=== PATIENT | male | born 1945 | race Caucasian/White ===

== ENCOUNTER 2020-04-05 10:59 | Inpatient (IN) | payer OTHER ==
[~2020-04-05] VITALS: Ht 182.9 cm; Wt 75.8 kg
[2020-04-05 12:14] LABS: Basophils # (auto) 0 10 ^3/uL (0-0.2); Basophils % (auto) 0.1 % (0.0-2.0); Eosinophils # (auto) 0 10 ^3/uL (0-0.8); Eosinophils % (auto) 0.1 % (0.0-7.0); Hematocrit 31.9 % (41.0-53.0); Hemoglobin 10.5 g/dL (13.5-17.5); Lymphocytes # (auto) 0.8 10 ^3/uL (0.4-5.4); Lymphocytes % (auto) 6.6 % (10.0-50.0); Mean Corpuscular Hemoglobin 28.3 pg (28.0-32.0); Mean Corpuscular Hgb Conc. 32.9 g/dL (32.0-36.0); Mean Corpuscular Volume 86.1 fL (80.0-100.0); Monocytes # (auto) 0.6 10 ^3/uL (0-1.3); Monocytes % (auto) 5.3 % (0.0-12.0); Neutrophils # (auto) 10.3 10 ^3/uL (1.6-8.6); Neutrophils % (auto) 87.9 % (37.0-80.0); Platelet Count (auto) 367 10^3/uL (140-450); Red Blood Cells 3.71 10^6/uL (4.5-5.90); White Blood Cell 11.7 10^3/uL (4.4-10.8)
[2020-04-05 12:37] LABS: Calcium 8.9 mg/dL (8.5-10.1); Potassium 4.4 mmol/L (3.5-5.1)
[2020-04-05 12:40] LABS: BUN/Creatinine Ratio 24.5; Bilirubin, Total 1.2 mg/dL (0.2-1.0); Total Protein 7.4 g/dL (6.4-8.2)
[2020-04-05] MEDS ORDERED: cefTRIAXone 1GM/50ML D5W 50 ML IV ONE (12:45)
[2020-04-05] MEDS ORDERED: SODIUM CHLORIDE 0.9% 1,000 ML IVB ONE (13:00)
[2020-04-05 13:58] LABS: INR 1.08 (0.9-1.15); Partial Thromboplastin Time 30.7 sec (23.0-31.2)
[2020-04-05 14:12] LABS: Magnesium 2.3 mg/dL (1.6-2.6)
[2020-04-05] MEDS ORDERED: ASPirin 81 mg TAB PO ONE (15:15)
[2020-04-05] MEDS ORDERED: DEXTROSE (50%) 50ML SYRG IV PRN (16:00)
[2020-04-05] MEDS ORDERED: NITROGLYCERIN 0.4 MG SL TAB SL PRN (16:00)
[2020-04-05] MEDS ORDERED: METOCLOPRAMIDE HCL 5MG/ml INJ 2ml VIAL IV PRN (16:00)
[2020-04-05] MEDS ORDERED: TEMAZEPAM 15 MG CAP PO PRN (16:00)
[2020-04-05] MEDS ORDERED: DOCUSATE SOD 100 MG CAP PO PRN (16:00)
[2020-04-05] MEDS ORDERED: ALUM & MAG HYDROX-SIMETH LIQ(MAALOX) 30 ML PO PRN (16:00)
[2020-04-05] MEDS ORDERED: ACETAMINOPHEN 325 MG TAB PO PRN (16:00)
[2020-04-05] MEDS ORDERED: CLINDAMYCIN 600MG IV 50 ML IV ONE (16:00)
[2020-04-05] MEDS: SODIUM CHLORIDE 0.9% 1,000 ML IV SCH (16:10)
[2020-04-05 16:33] LABS: Cholesterol 137 mg/dL (< 200); Triglycerides 107 mg/dL (< 150)
[2020-04-05 16:35] LABS: HDL Cholesterol 31 mg/dL (40-59); LDL Cholesterol 92 mg/dL (< 100)
[2020-04-05] MEDS: HYDROcodone-ACET 5/325MG TAB PO PRN (19:03)
[2020-04-05] MEDS: ACCU-CHEK COMFORT CURVE STRIP VI SCH ×2 (19:03→23:14)
[2020-04-05] MEDS: InsuLIN REG 1unit/0.01ml Soln (100units/ml) SC SCH ×2 (19:20→23:43)
[2020-04-05] MEDS: CLINDAMYCIN 600MG IV 50 ML IV SCH (22:00)
[2020-04-05] MEDS: ATORVASTATIN 20 MG TAB PO SCH (22:00)
[2020-04-05] MEDS: CARVEDILOL 3.125 MG TAB PO SCH (22:00)
[2020-04-05 22:49] VITALS: BP 112/59
[2020-04-06] MEDS ORDERED: METF-370 PO (00:32)
[2020-04-06] MEDS ORDERED: ASPI-543 PO (00:32)
[2020-04-06] MEDS ORDERED: CINN500C7 PO (00:32)
[2020-04-06] MEDS ORDERED: MULT-930 PO (00:32)
[2020-04-06 02:19] LABS: Urine Bacteria NONE SEEN /hpf (None Seen); Urine Blood TRACE /uL (Negative); Urine Specific Gravity 1.028 (1.001-1.035); Urine WBC <1 /hpf (0 - 3)
[2020-04-06 02:20] LABS: Alcohol, Urine < 3.0 mg/dL (0-10); Amphetamine Screen, Urine NEGATIVE (NEGATIVE); Barbiturate Scree,Urine NEGATIVE (NEGATIVE); Benzodiazephine Screen, Urine NEGATIVE (NEGATIVE); Cannabinoid Screen, Urine NEGATIVE (NEGATIVE); Cocaine Screen, Urine NEGATIVE (NEGATIVE); Opiate Scree,Urine POSITIVE (NEGATIVE); Phencyclidine Screen, Urine NEGATIVE (NEGATIVE)
[2020-04-06 05:00] VITALS: BP 119/49
[2020-04-06 06:21] LABS: Basophils # (auto) 0 10 ^3/uL (0-0.2); Basophils % (auto) 0.3 % (0.0-2.0); Eosinophils # (auto) 0.2 10 ^3/uL (0-0.8); Eosinophils % (auto) 2.1 % (0.0-7.0); Hematocrit 28.7 % (41.0-53.0); Hemoglobin 9.9 g/dL (13.5-17.5); Lymphocytes # (auto) 1.3 10 ^3/uL (0.4-5.4); Lymphocytes % (auto) 12.3 % (10.0-50.0); Mean Corpuscular Hemoglobin 29.3 pg (28.0-32.0); Mean Corpuscular Hgb Conc. 34.3 g/dL (32.0-36.0); Mean Corpuscular Volume 85.5 fL (80.0-100.0); Monocytes # (auto) 0.6 10 ^3/uL (0-1.3); Monocytes % (auto) 5.7 % (0.0-12.0); Neutrophils # (auto) 8.7 10 ^3/uL (1.6-8.6); Neutrophils % (auto) 79.6 % (37.0-80.0); Nucleated Red Blood Cells % 0.1 %; Platelet Count (auto) 340 10^3/uL (140-450); Red Blood Cells 3.36 10^6/uL (4.5-5.90); White Blood Cell 10.9 10^3/uL (4.4-10.8)
[2020-04-06 06:29] LABS: Potassium 3.7 mmol/L (3.5-5.1)
[2020-04-06 06:36] LABS: BUN/Creatinine Ratio 29.5; Calcium 8.1 mg/dL (8.5-10.1)
[2020-04-06] MEDS: ACCU-CHEK COMFORT CURVE STRIP VI SCH ×4 (06:36→23:11)
[2020-04-06] MEDS: InsuLIN REG 1unit/0.01ml Soln (100units/ml) SC SCH ×3 (06:37→17:00)
[2020-04-06] MEDS: CLINDAMYCIN 600MG IV 50 ML IV SCH ×3 (06:45→22:52)
[2020-04-06] MEDS: HYDROcodone-ACET 5/325MG TAB PO PRN ×2 (07:03→18:48)
[2020-04-06 08:00] VITALS: BP 110/62
[2020-04-06] MEDS: SODIUM CHLORIDE 0.9% 1,000 ML IV SCH (08:40)
[2020-04-06] MEDS: FAMOTIDINE 20 MG TAB PO SCH (10:20)
[2020-04-06] MEDS: cefTRIAXone 1GM/50ML D5W 50 ML IV SCH (10:20)
[2020-04-06] MEDS: ASPirin 81 mg TAB PO SCH (10:20)
[2020-04-06] MEDS: CARVEDILOL 3.125 MG TAB PO SCH ×2 (10:21→22:53)
[2020-04-06 12:53] VITALS: BP 110/61
[2020-04-06 17:17] VITALS: BP 126/83
[2020-04-06 22:00] VITALS: BP 112/61
[2020-04-06] MEDS: ATORVASTATIN 20 MG TAB PO SCH (22:53)
[2020-04-06] MEDS: INSULIN LANTUS (GLARGINE) 1 /0.01ml (100units/ml) SC SCH (22:54)
[2020-04-07] MEDS: HYDROcodone-ACET 5/325MG TAB PO PRN ×3 (01:24→20:29)
[2020-04-07 05:00] VITALS: BP 115/65
[2020-04-07] MEDS: CLINDAMYCIN 600MG IV 50 ML IV SCH ×3 (05:44→21:24)
[2020-04-07] MEDS: ACCU-CHEK COMFORT CURVE STRIP VI SCH ×3 (06:00→16:35)
[2020-04-07] MEDS: ASPirin 81 mg TAB PO SCH (08:21)
[2020-04-07] MEDS: cefTRIAXone 1GM/50ML D5W 50 ML IV SCH (08:21)
[2020-04-07] MEDS: CARVEDILOL 3.125 MG TAB PO SCH ×2 (08:22→21:25)
[2020-04-07] MEDS: FAMOTIDINE 20 MG TAB PO SCH (08:22)
[2020-04-07 08:33] VITALS: BP 127/67
[2020-04-07] MEDS: InsuLIN REG 1unit/0.01ml Soln (100units/ml) SC SCH ×2 (12:12→17:00)
[2020-04-07 12:30] VITALS: BP 120/65
[2020-04-07 13:59] LABS: Albumin 2.4 g/dL (3.4-5.0); Calcium 8.9 mg/dL (8.5-10.1); Potassium 4.5 mmol/L (3.5-5.1)
[2020-04-07 14:01] LABS: INR 1.08 (0.9-1.15); Partial Thromboplastin Time 29.6 sec (23.0-31.2)
[2020-04-07 14:03] LABS: BUN/Creatinine Ratio 23.5; Bilirubin, Total 0.4 mg/dL (0.2-1.0); Total Protein 6.8 g/dL (6.4-8.2)
[2020-04-07 14:33] LABS: Basophils # (auto) 0 10 ^3/uL (0-0.2); Basophils % (auto) 0.3 % (0.0-2.0); Eosinophils # (auto) 0.2 10 ^3/uL (0-0.8); Eosinophils % (auto) 2.6 % (0.0-7.0); Hematocrit 29.7 % (41.0-53.0); Hemoglobin 9.9 g/dL (13.5-17.5); Lymphocytes # (auto) 1.1 10 ^3/uL (0.4-5.4); Lymphocytes % (auto) 11.8 % (10.0-50.0); Mean Corpuscular Hemoglobin 28.5 pg (28.0-32.0); Mean Corpuscular Hgb Conc. 33.2 g/dL (32.0-36.0); Mean Corpuscular Volume 85.8 fL (80.0-100.0); Monocytes # (auto) 0.6 10 ^3/uL (0-1.3); Monocytes % (auto) 6.5 % (0.0-12.0); Neutrophils # (auto) 7.3 10 ^3/uL (1.6-8.6); Neutrophils % (auto) 78.8 % (37.0-80.0); Platelet Count (auto) 405 10^3/uL (140-450); Red Blood Cells 3.46 10^6/uL (4.5-5.90); Red Cell Distribution Width 15.4 % (11.8-14.3); White Blood Cell 9.3 10^3/uL (4.4-10.8)
[2020-04-07] MEDS ORDERED: MIDAZOLAM HCL 1MG/1ML-2 ML VIAL ONE (16:31)
[2020-04-07] MEDS ORDERED: fentaNYL CITRATE 100 MCG/2 ML VL ONE (16:31)
[2020-04-07] MEDS ORDERED: MEPERIDINE HCL (25 MG/ML) 1ML VIAL ONE (16:31)
[2020-04-07] MEDS ORDERED: LIDOCAINE 1% HCL (LOCAL ANESTH.) INJ 20ML MDV ONE (16:40)
[2020-04-07] MEDS ORDERED: BUPIVACAINE 0.5% MPF INJ 30ML SDV IJ ONE (16:40)
[2020-04-07] MEDS ORDERED: ONDANSETRON HCL 4 MG/2 ML VIAL IV PRN (16:45)
[2020-04-07] MEDS ORDERED: MORPHINE SULFATE 4 MG/ML SYR/VIAL IV PRN (16:45)
[2020-04-07] MEDS ORDERED: MIDAZOLAM HCL 1MG/1ML-2 ML VIAL IV PRN (16:45)
[2020-04-07] MEDS ORDERED: ACCU-CHEK COMFORT CURVE STRIP VI ONE (16:45)
[2020-04-07] MEDS ORDERED: HYDROmorphone HCL 2 MG/ML VL IV PRN (16:45)
[2020-04-07] MEDS ORDERED: ePHEDrine SULFATE 50 MG/ML AMP IV PRN (16:45)
[2020-04-07] MEDS ORDERED: LABETALOL HCL 5 MG/ML 4ML SYRINGE IV PRN (16:45)
[2020-04-07 16:57] VITALS: BP 144/70
[2020-04-07] MEDS ORDERED: CLINDAMYCIN 600MG IV 50 ML IV ONE (17:06)
[2020-04-07] MEDS ORDERED: PROPOFOL 10 MG/ML 20 ML IV ONE (17:10)
[2020-04-07] MEDS: ATORVASTATIN 20 MG TAB PO SCH (21:25)
[2020-04-07] MEDS: INSULIN LANTUS (GLARGINE) 1 /0.01ml (100units/ml) SC SCH (21:36)
[2020-04-07 22:00] VITALS: BP 135/70
[2020-04-08] MEDS: HYDROcodone-ACET 5/325MG TAB PO PRN ×2 (02:31→16:56)
[2020-04-08 05:00] VITALS: BP 116/66
[2020-04-08] MEDS: CLINDAMYCIN 600MG IV 50 ML IV SCH ×2 (06:17→14:00)
[2020-04-08] MEDS: InsuLIN REG 1unit/0.01ml Soln (100units/ml) SC SCH ×3 (06:35→16:57)
[2020-04-08] MEDS: ACCU-CHEK COMFORT CURVE STRIP VI SCH ×3 (06:40→16:56)
[2020-04-08 08:37] VITALS: BP 104/65
[2020-04-08] MEDS: cefTRIAXone 1GM/50ML D5W 50 ML IV SCH (08:42)
[2020-04-08] MEDS: ASPirin 81 mg TAB PO SCH (08:43)
[2020-04-08] MEDS: CARVEDILOL 3.125 MG TAB PO SCH (08:44)
[2020-04-08] MEDS: FAMOTIDINE 20 MG TAB PO SCH (08:44)
[2020-04-08] MEDS ORDERED: ATOR20TA50 PO (10:02)
[2020-04-08] MEDS ORDERED: ASPI-543 PO (10:02)
[2020-04-08] MEDS ORDERED: SULF400T11 PO (10:02)
[2020-04-08 13:00] VITALS: BP 123/62
[2020-04-08] MEDS ORDERED: DAKINS QUARTER STR 0.125% (NaHypochlorite) 473 ML TOPICAL SOL TOP ONE (14:45)
[2020-04-08 14:57] VITALS: BP 125/69
== END 2020-04-08 17:10 | disposition home health service (06) | DRG 239 ==
LOC: ER 10:59 → TELE 15:59 → TELE-CENTR 23:56 → TELE-EAST 04-06 05:12
PROVIDERS: ADMIT Hospitalist; ATTEND Hospitalist
PROC: 05HC33Z Insertion of Infusion Device into Left Basilic Vein, Percutaneous Approach (ICD-10-PCS; 2020-04-07)
PROC: B54NZZA Ultrasonography of Left Upper Extremity Veins, Guidance (ICD-10-PCS; 2020-04-07)
PROC: 0Y6N0ZB Detachment at Left Foot, Partial 2nd Ray, Open Approach (ICD-10-PCS; principal; 2020-04-07 16:59)
DX: E11.52 Type 2 diabetes mellitus with diabetic peripheral angiopathy with gangrene (principal); A48.0 Gas gangrene; U07.1 COVID-19; L03.116 Cellulitis of left lower limb; M86.8X7 Other osteomyelitis, ankle and foot; N17.9 Acute kidney failure, unspecified; E11.69 Type 2 diabetes mellitus with other specified complication; I11.9 Hypertensive heart disease without heart failure; B96.5 Pseudomonas (aeruginosa) (mallei) (pseudomallei) as the cause of diseases classified elsewhere; B96.20 Unspecified Escherichia coli [E. coli] as the cause of diseases classified elsewhere; B95.61 Methicillin susceptible Staphylococcus aureus infection as the cause of diseases classified elsewhere; I77.1 Stricture of artery; I08.0 Rheumatic disorders of both mitral and aortic valves; I25.10 Atherosclerotic heart disease of native coronary artery without angina pectoris; E78.5 Hyperlipidemia, unspecified; Z79.899 Other long term (current) drug therapy; Z88.5 Allergy status to narcotic agent; Z88.0 Allergy status to penicillin; Z95.1 Presence of aortocoronary bypass graft; Z82.49 Family history of ischemic heart disease and other diseases of the circulatory system; Z83.3 Family history of diabetes mellitus
CPT/HCPCS: 36415; 71045; 73700; 80048; 80053; 80061; 80307; 81001; 82962; 83036; 83605; 83735; 84484; 85025; 85610; 85730; 86850; 86900; 86901; 87040; 87070; 87075; 87077; 87086; 87186; 87205; 87426; 93005; 93306; 93926; 93971; 96365; 96367; 97110; 97530; 99291; G0378; J0696; J1815; J2001; J2250; J2704; J3490

== ENCOUNTER 2020-09-29 21:09 | Inpatient (IN) | payer OTHER ==
[~2020-09-29] VITALS: Ht 182.9 cm; Wt 74.2 kg
[~2020-09-29 21:09] MED LIST: ASPI-543 PO; ATOR20TA50 PO; CINN500C7 PO; METF-370 PO; MULT-930 PO; SULF400T11 PO
[2020-09-29] MEDS ORDERED: SODIUM CHLORIDE 0.9% 1,000 ML IV ONE (22:45)
[2020-09-29] MEDS ORDERED: levoFLOXacin 750MG 150 ML IV ONE (23:00)
[2020-09-29] MEDS ORDERED: ONDANSETRON HCL 4 MG/2 ML VIAL IV ONE (23:00)
[2020-09-29] MEDS ORDERED: metroNIDAZOLE 500MG/100ML 100 ML IV ONE (23:00)
[2020-09-29] MEDS ORDERED: VANCOMYCIN 1GM/250ML 250 ML IV ONE (23:00)
[2020-09-29] MEDS ORDERED: MORPHINE SULFATE 4 MG/ML SYR/VIAL IV ONE (23:00)
[2020-09-29 23:48] LABS: Basophils # (auto) 0 10 ^3/uL (0-0.2); Basophils % (auto) 0.2 % (0.0-2.0); Eosinophils # (auto) 0 10 ^3/uL (0-0.8); Hematocrit 32.2 % (41.0-53.0); Lymphocytes # (auto) 1.4 10 ^3/uL (0.4-5.4); Mean Corpuscular Hemoglobin 29.6 pg (28.0-32.0); Mean Corpuscular Hgb Conc. 34.3 g/dL (32.0-36.0); Mean Corpuscular Volume 86.4 fL (80.0-100.0); Monocytes % (auto) 7.9 % (0.0-12.0); Neutrophils # (auto) 10.3 10 ^3/uL (1.6-8.6); Neutrophils % (auto) 80.9 % (37.0-80.0); Nucleated Red Blood Cells % 0.1 %; Red Blood Cells 3.72 10^6/uL (4.5-5.90); Red Cell Distribution Width 13.5 % (11.8-14.3); White Blood Cell 12.8 10^3/uL (4.4-10.8)
[2020-09-29 23:53] LABS: Albumin 3.2 g/dL (3.4-5.0); Calcium 9.1 mg/dL (8.5-10.1)
[2020-09-29 23:54] LABS: INR 1.09 (0.9-1.15); Partial Thromboplastin Time 30.2 sec (23.6-33.0)
[2020-09-30 00:02] LABS: BUN/Creatinine Ratio 22.4; Bilirubin, Total 1.3 mg/dL (0.2-1.0); CRP High Sensitivity 12.2 mg/dL (< 0.3); Total Protein 8.4 g/dL (6.4-8.2)
[2020-09-30] MEDS ORDERED: ASPirin 325 MG TAB PO ONE (05:15)
[2020-09-30] MEDS ORDERED: MORPHINE SULFATE 4 MG/ML SYR/VIAL IV ONE (12:30)
[2020-09-30] MEDS ORDERED: ONDANSETRON HCL 4 MG/2 ML VIAL IV ONE (12:30)
[2020-09-30] MEDS ORDERED: ENOXAPARIN SOD 80 MG/0.8ML SYRINGE SC ONE (13:15)
[2020-09-30] MEDS ORDERED: ONDANSETRON HCL 4 MG/2 ML VIAL IV PRN (13:30)
[2020-09-30] MEDS ORDERED: MORPHINE SULFATE INJECTION 2 MG/ML SYRG IV PRN (13:30)
[2020-09-30] MEDS ORDERED: NITROGLYCERIN 0.4 MG SL TAB SL PRN (13:30)
[2020-09-30] MEDS ORDERED: InsuLIN REG 1unit/0.01ml Soln (100units/ml) SC ONE (17:00)
[2020-09-30] MEDS ORDERED: ACCU-CHEK COMFORT CURVE STRIP VI ONE (17:00)
[2020-09-30] MEDS: CLINDAMYCIN 600MG IV 50 ML IV SCH (17:16)
[2020-09-30] MEDS ORDERED: ACETAMINOPHEN 325 MG TAB PO PRN (20:15)
[2020-10-01] MEDS: CLINDAMYCIN 600MG IV 50 ML IV SCH ×2 (01:20→06:30)
[2020-10-01] MEDS ORDERED: SODIUM CHLORIDE 0.9% 500 ML IV ONE (02:15)
[2020-10-01] MEDS ORDERED: DEXTROSE (50%) 50ML SYRG IV PRN (02:45)
[2020-10-01] MEDS: MORPHINE SULFATE INJECTION 2 MG/ML SYRG IV PRN ×2 (04:11→14:00)
[2020-10-01 04:37] LABS: Calcium 9.5 mg/dL (8.5-10.1); Potassium 4.5 mmol/L (3.5-5.1)
[2020-10-01 05:20] LABS: Basophils # (auto) 0 10 ^3/uL (0-0.2); Basophils % (auto) 0.1 % (0.0-2.0); Eosinophils # (auto) 0 10 ^3/uL (0-0.8); Hematocrit 33.5 % (41.0-53.0); Lymphocytes # (auto) 1.6 10 ^3/uL (0.4-5.4); Lymphocytes % (auto) 10.4 % (10.0-50.0); Mean Corpuscular Hemoglobin 28.6 pg (28.0-32.0); Mean Corpuscular Hgb Conc. 32.9 g/dL (32.0-36.0); Mean Corpuscular Volume 86.9 fL (80.0-100.0); Monocytes # (auto) 0.9 10 ^3/uL (0-1.3); Monocytes % (auto) 5.8 % (0.0-12.0); Neutrophils % (auto) 83.7 % (37.0-80.0); Red Blood Cells 3.86 10^6/uL (4.5-5.90); Red Cell Distribution Width 13.9 % (11.8-14.3); White Blood Cell 15.5 10^3/uL (4.4-10.8)
[2020-10-01] MEDS: ACCU-CHEK COMFORT CURVE STRIP VI SCH ×4 (07:25→23:00)
[2020-10-01] MEDS: InsuLIN REG 1unit/0.01ml Soln (100units/ml) SC SCH ×4 (07:35→23:00)
[2020-10-01] MEDS ORDERED: ATORVASTATIN 20 MG TAB PO SCH (10:00)
[2020-10-01] MEDS ORDERED: VANCOMYCIN 1GM/250ML 250 ML IV ONE (11:00)
[2020-10-01] MEDS ORDERED: VANCOMYCIN PER PHARMACY 0 MG IV SCH (11:00)
[2020-10-01] MEDS: MULTIPLE VITAMIN TAB PO SCH (11:07)
[2020-10-01] MEDS: ASPirin 81 mg TAB PO SCH (11:07)
[2020-10-01] MEDS: metFORMIN HYDROCHLORIDE 500 MG TAB PO SCH (11:07)
[2020-10-01] MEDS ORDERED: levoFLOXacin 500MG 100 ML IV SCH (12:00)
[2020-10-01 17:00] VITALS: BP 122/61
[2020-10-01] MEDS: ACETAMINOPHEN 325 MG TAB PO PRN (17:05)
[2020-10-01] MEDS: HYDROcodone-ACET 5/325MG TAB PO PRN (18:53)
[2020-10-01 20:00] VITALS: BP 102/54
[2020-10-01] MEDS: MEROPENEM 1GM IVPB 100 ML IV SCH (22:00)
[2020-10-01] MEDS: ATORVASTATIN 20 MG TAB PO SCH (23:00)
[2020-10-02] MEDS: VANCOMYCIN 1GM/250ML 250 ML IV SCH ×2 (04:10→20:23)
[2020-10-02] MEDS: MEROPENEM 1GM IVPB 100 ML IV SCH ×3 (06:10→22:03)
[2020-10-02 06:49] LABS: Basophils # (auto) 0 10 ^3/uL (0-0.2); Basophils % (auto) 0.2 % (0.0-2.0); Eosinophils # (auto) 0 10 ^3/uL (0-0.8); Hematocrit 30.2 % (41.0-53.0); Hemoglobin 10.3 g/dL (13.5-17.5); Lymphocytes # (auto) 0.9 10 ^3/uL (0.4-5.4); Lymphocytes % (auto) 6.8 % (10.0-50.0); Mean Corpuscular Hemoglobin 29.3 pg (28.0-32.0); Mean Corpuscular Volume 86.1 fL (80.0-100.0); Monocytes # (auto) 0.8 10 ^3/uL (0-1.3); Monocytes % (auto) 6.1 % (0.0-12.0); Neutrophils # (auto) 11.5 10 ^3/uL (1.6-8.6); Neutrophils % (auto) 86.9 % (37.0-80.0); Red Blood Cells 3.51 10^6/uL (4.5-5.90); Red Cell Distribution Width 13.9 % (11.8-14.3); White Blood Cell 13.2 10^3/uL (4.4-10.8)
[2020-10-02] MEDS: ACCU-CHEK COMFORT CURVE STRIP VI SCH ×4 (07:01→22:03)
[2020-10-02] MEDS: InsuLIN REG 1unit/0.01ml Soln (100units/ml) SC SCH ×4 (07:02→22:12)
[2020-10-02 07:21] LABS: Potassium 3.8 mmol/L (3.5-5.1)
[2020-10-02 07:21] LABS: INR 1.21 (0.9-1.15); Partial Thromboplastin Time 30.5 sec (23.6-33.0)
[2020-10-02 07:33] LABS: BUN/Creatinine Ratio 34.6
[2020-10-02 09:00] VITALS: BP 131/66
[2020-10-02] MEDS: metFORMIN HYDROCHLORIDE 500 MG TAB PO SCH (09:03)
[2020-10-02] MEDS: MULTIPLE VITAMIN TAB PO SCH (09:04)
[2020-10-02] MEDS: ASPirin 81 mg TAB PO SCH (09:04)
[2020-10-02] MEDS ORDERED: LIDOCAINE 2%HCL (LOCAL ANESTH.) INJ 20ML MDV ONE (12:44)
[2020-10-02] MEDS ORDERED: IODIXANOL 320MG/ML 100ML BTL IV ONE (12:44)
[2020-10-02] MEDS ORDERED: HEPARIN IN NS 1000Units/500mL 1,500 ML ONE (12:44)
[2020-10-02] MEDS ORDERED: SODIUM CHL 0.9% 50 ML ONE (12:46)
[2020-10-02] MEDS ORDERED: fentaNYL CITRATE 100 MCG/2 ML VL ONE (12:46)
[2020-10-02] MEDS ORDERED: ANGIOMAX 250 MG VIAL IV ONE (12:46)
[2020-10-02] MEDS ORDERED: MIDAZOLAM HCL 2MG/2ML 2ml VIAL (1mg/ml) ONE (12:46)
[2020-10-02] MEDS ORDERED: diphenhdrAMINE HCL 50 MG/1 ML VL ONE (13:10)
[2020-10-02] MEDS ORDERED: CLOPIDOGREL BISULFATE 75 MG TAB ONE (13:42)
[2020-10-02 17:00] VITALS: BP 118/68
[2020-10-02] MEDS: ACETAMINOPHEN 325 MG TAB PO PRN (18:32)
[2020-10-02 22:00] VITALS: BP 126/71
[2020-10-02] MEDS: ATORVASTATIN 20 MG TAB PO SCH (22:02)
[2020-10-03 05:00] VITALS: BP 128/51
[2020-10-03] MEDS: ACCU-CHEK COMFORT CURVE STRIP VI SCH ×4 (05:45→21:06)
[2020-10-03] MEDS: MEROPENEM 1GM IVPB 100 ML IV SCH ×3 (05:45→21:05)
[2020-10-03] MEDS: MORPHINE SULFATE INJECTION 2 MG/ML SYRG IV PRN ×2 (05:45→16:00)
[2020-10-03] MEDS: InsuLIN REG 1unit/0.01ml Soln (100units/ml) SC SCH ×4 (05:46→21:28)
[2020-10-03 06:59] LABS: Basophils # (auto) 0 10 ^3/uL (0-0.2); Basophils % (auto) 0.1 % (0.0-2.0); Eosinophils # (auto) 0 10 ^3/uL (0-0.8); Eosinophils % (auto) 0.2 % (0.0-7.0); Hematocrit 30.4 % (41.0-53.0); Hemoglobin 10.1 g/dL (13.5-17.5); Lymphocytes # (auto) 0.9 10 ^3/uL (0.4-5.4); Lymphocytes % (auto) 7.7 % (10.0-50.0); Mean Corpuscular Hemoglobin 28.5 pg (28.0-32.0); Mean Corpuscular Hgb Conc. 33.2 g/dL (32.0-36.0); Mean Corpuscular Volume 85.8 fL (80.0-100.0); Monocytes # (auto) 0.7 10 ^3/uL (0-1.3); Neutrophils # (auto) 10.3 10 ^3/uL (1.6-8.6); Red Blood Cells 3.54 10^6/uL (4.5-5.90); Red Cell Distribution Width 13.9 % (11.8-14.3); White Blood Cell 11.9 10^3/uL (4.4-10.8)
[2020-10-03 07:19] LABS: Calcium 8.8 mg/dL (8.5-10.1); Potassium 3.7 mmol/L (3.5-5.1)
[2020-10-03 07:21] LABS: BUN/Creatinine Ratio 31.3
[2020-10-03 09:00] VITALS: BP 116/66
[2020-10-03] MEDS ORDERED: fentaNYL CITRATE 100 MCG/2 ML VL ONE (09:47)
[2020-10-03] MEDS ORDERED: ONDANSETRON HCL 4 MG/2 ML VIAL ONE (09:47)
[2020-10-03] MEDS ORDERED: PROPOFOL 10 MG/ML 20 ML IV ONE (09:47)
[2020-10-03] MEDS ORDERED: MIDAZOLAM HCL 2MG/2ML 2ml VIAL (1mg/ml) ONE (09:47)
[2020-10-03] MEDS ORDERED: SODIUM CHLORIDE LOCK 10 ML ONE (09:47)
[2020-10-03] MEDS: metFORMIN HYDROCHLORIDE 500 MG TAB PO SCH (10:00)
[2020-10-03] MEDS: MULTIPLE VITAMIN TAB PO SCH (10:00)
[2020-10-03] MEDS: ASPirin 81 mg TAB PO SCH (10:00)
[2020-10-03] MEDS ORDERED: CLINDAMYCIN 600MG IV 50 ML IV ONE ×2 (10:43→12:25)
[2020-10-03] MEDS ORDERED: BUPIVACAINE 0.25% INJ 50ML VIAL ONE (11:07)
[2020-10-03] MEDS: VANCOMYCIN 1GM/250ML 250 ML IV SCH ×2 (11:42→18:00)
[2020-10-03] MEDS ORDERED: ACCU-CHEK COMFORT CURVE STRIP VI ONE (11:45)
[2020-10-03] MEDS ORDERED: MORPHINE SULFATE 4 MG/ML SYR/VIAL IV PRN (11:45)
[2020-10-03] MEDS ORDERED: HYDROmorphone HCL 2 MG/ML VL IV PRN (11:45)
[2020-10-03] MEDS ORDERED: ONDANSETRON HCL 4 MG/2 ML VIAL IV PRN (11:45)
[2020-10-03] MEDS ORDERED: BACITRACIN TOP OINT 1 UD PKG TOP ONE (12:19)
[2020-10-03 13:00] VITALS: BP 130/76
[2020-10-03 16:43] VITALS: BP 138/64
[2020-10-03] MEDS: ATORVASTATIN 20 MG TAB PO SCH (21:06)
[2020-10-03 22:00] VITALS: BP 115/62
[2020-10-04] MEDS: MORPHINE SULFATE INJECTION 2 MG/ML SYRG IV PRN (00:06)
[2020-10-04 05:00] VITALS: BP 118/60
[2020-10-04] MEDS: MEROPENEM 1GM IVPB 100 ML IV SCH ×3 (05:58→22:11)
[2020-10-04] MEDS: ACCU-CHEK COMFORT CURVE STRIP VI SCH ×4 (05:59→22:12)
[2020-10-04] MEDS: InsuLIN REG 1unit/0.01ml Soln (100units/ml) SC SCH ×4 (06:00→22:13)
[2020-10-04 06:34] LABS: Basophils # (auto) 0 10 ^3/uL (0-0.2); Basophils % (auto) 0.1 % (0.0-2.0); Eosinophils # (auto) 0 10 ^3/uL (0-0.8); Hemoglobin 10.3 g/dL (13.5-17.5); Monocytes # (auto) 0.5 10 ^3/uL (0-1.3); Neutrophils % (auto) 87.3 % (37.0-80.0)
[2020-10-04 06:36] LABS: Hematocrit 31.3 % (41.0-53.0); Lymphocytes % (auto) 8.4 % (10.0-50.0); Mean Corpuscular Hemoglobin 28.3 pg (28.0-32.0); Mean Corpuscular Volume 85.7 fL (80.0-100.0); Monocytes % (auto) 4.2 % (0.0-12.0); Neutrophils # (auto) 10.1 10 ^3/uL (1.6-8.6); Red Blood Cells 3.65 10^6/uL (4.5-5.90); Red Cell Distribution Width 13.8 % (11.8-14.3); White Blood Cell 11.6 10^3/uL (4.4-10.8)
[2020-10-04 06:44] LABS: Calcium 8.9 mg/dL (8.5-10.1); Potassium 4.1 mmol/L (3.5-5.1)
[2020-10-04 06:46] LABS: BUN/Creatinine Ratio 30.3
[2020-10-04 09:00] VITALS: BP 129/67
[2020-10-04] MEDS: VANCOMYCIN 1GM/250ML 250 ML IV SCH ×2 (10:00→22:11)
[2020-10-04] MEDS: ASPirin 81 mg TAB PO SCH (10:03)
[2020-10-04] MEDS: MULTIPLE VITAMIN TAB PO SCH (10:03)
[2020-10-04] MEDS: metFORMIN HYDROCHLORIDE 500 MG TAB PO SCH (10:03)
[2020-10-04 13:00] VITALS: BP 110/62
[2020-10-04 16:00] VITALS: BP 118/68
[2020-10-04] MEDS ORDERED: HYDR-4902 PO (16:33)
[2020-10-04] MEDS ORDERED: VANC1INJ IV (16:33)
[2020-10-04] MEDS ORDERED: ASPI-543 PO (16:33)
[2020-10-04] MEDS ORDERED: CLOP75TA28 PO (16:33)
[2020-10-04] MEDS ORDERED: LIDOCAINE 1% (LOCAL ANESTH.) PF 5ml SDV ID ONE (18:00)
[2020-10-04 22:00] VITALS: BP 108/67
[2020-10-04] MEDS: ATORVASTATIN 20 MG TAB PO SCH (22:11)
[2020-10-04] MEDS: SODIUM CHLOR 0.9% PF (SALINE LOCK) 10ML VIAL/SYR IV SCH (22:11)
[2020-10-04] MEDS: HYDROcodone-ACET 5/325MG TAB PO PRN (23:10)
[2020-10-05] MEDS: MORPHINE SULFATE INJECTION 2 MG/ML SYRG IV PRN ×2 (04:59→19:51)
[2020-10-05 05:00] VITALS: BP 130/82
[2020-10-05] MEDS: ACCU-CHEK COMFORT CURVE STRIP VI SCH ×4 (06:03→21:17)
[2020-10-05] MEDS: MEROPENEM 1GM IVPB 100 ML IV SCH ×3 (06:03→21:17)
[2020-10-05] MEDS: InsuLIN REG 1unit/0.01ml Soln (100units/ml) SC SCH ×4 (06:06→21:25)
[2020-10-05 06:27] LABS: BUN/Creatinine Ratio 38.8; Calcium 8.4 mg/dL (8.5-10.1); Potassium 4.6 mmol/L (3.5-5.1)
[2020-10-05 06:30] LABS: Basophils # (auto) 0 10 ^3/uL (0-0.2); Basophils % (auto) 0.3 % (0.0-2.0); Eosinophils # (auto) 0.1 10 ^3/uL (0-0.8); Eosinophils % (auto) 1.7 % (0.0-7.0); Hematocrit 28.8 % (41.0-53.0); Hemoglobin 9.7 g/dL (13.5-17.5); Lymphocytes # (auto) 1.6 10 ^3/uL (0.4-5.4); Lymphocytes % (auto) 18.9 % (10.0-50.0); Mean Corpuscular Hemoglobin 29.1 pg (28.0-32.0); Mean Corpuscular Hgb Conc. 33.9 g/dL (32.0-36.0); Mean Corpuscular Volume 85.9 fL (80.0-100.0); Monocytes # (auto) 0.6 10 ^3/uL (0-1.3); Monocytes % (auto) 7.6 % (0.0-12.0); Neutrophils % (auto) 71.5 % (37.0-80.0); Red Blood Cells 3.35 10^6/uL (4.5-5.90); White Blood Cell 8.5 10^3/uL (4.4-10.8)
[2020-10-05 07:37] VITALS: BP 116/68
[2020-10-05 08:00] VITALS: BP 116/68
[2020-10-05] MEDS: SODIUM CHLOR 0.9% PF (SALINE LOCK) 10ML VIAL/SYR IV SCH ×2 (10:17→21:17)
[2020-10-05] MEDS: ASPirin 81 mg TAB PO SCH (10:18)
[2020-10-05] MEDS: MULTIPLE VITAMIN TAB PO SCH (10:18)
[2020-10-05] MEDS: metFORMIN HYDROCHLORIDE 500 MG TAB PO SCH (10:18)
[2020-10-05 12:00] VITALS: BP 118/62
[2020-10-05] MEDS: VANCOMYCIN 1GM/250ML 250 ML IV SCH (12:16)
[2020-10-05 16:00] VITALS: BP 108/58
[2020-10-05] MEDS: ATORVASTATIN 20 MG TAB PO SCH (21:17)
[2020-10-05 22:00] VITALS: BP 115/64
[2020-10-06] MEDS: VANCOMYCIN 1GM/250ML 250 ML IV SCH ×2 (02:04→17:40)
[2020-10-06] MEDS: HYDROcodone-ACET 5/325MG TAB PO PRN (03:38)
[2020-10-06 05:00] VITALS: BP 127/69
[2020-10-06] MEDS: MEROPENEM 1GM IVPB 100 ML IV SCH ×3 (05:45→22:11)
[2020-10-06] MEDS: ACCU-CHEK COMFORT CURVE STRIP VI SCH ×4 (06:29→20:57)
[2020-10-06] MEDS: InsuLIN REG 1unit/0.01ml Soln (100units/ml) SC SCH ×4 (06:31→21:00)
[2020-10-06 07:23] LABS: Basophils # (auto) 0 10 ^3/uL (0-0.2); Eosinophils # (auto) 0.1 10 ^3/uL (0-0.8); Eosinophils % (auto) 1.7 % (0.0-7.0); Hemoglobin 10.9 g/dL (13.5-17.5); Lymphocytes # (auto) 1.6 10 ^3/uL (0.4-5.4); Mean Corpuscular Hemoglobin 29.2 pg (28.0-32.0); Neutrophils # (auto) 5.6 10 ^3/uL (1.6-8.6); Red Blood Cells 3.75 10^6/uL (4.5-5.90)
[2020-10-06 07:27] LABS: Basophils % (auto) 0.2 % (0.0-2.0); Hematocrit 32.3 % (41.0-53.0); Lymphocytes % (auto) 19.7 % (10.0-50.0); Mean Corpuscular Hgb Conc. 33.9 g/dL (32.0-36.0); Monocytes # (auto) 0.6 10 ^3/uL (0-1.3); Monocytes % (auto) 7.8 % (0.0-12.0); Neutrophils % (auto) 70.6 % (37.0-80.0)
[2020-10-06 07:28] LABS: BUN/Creatinine Ratio 21.1; Calcium 8.6 mg/dL (8.5-10.1); Potassium 5.2 mmol/L (3.5-5.1)
[2020-10-06 08:10] VITALS: BP 121/69
[2020-10-06 09:00] VITALS: BP 121/69
[2020-10-06] MEDS: SODIUM CHLOR 0.9% PF (SALINE LOCK) 10ML VIAL/SYR IV SCH ×2 (11:00→21:00)
[2020-10-06] MEDS: metFORMIN HYDROCHLORIDE 500 MG TAB PO SCH (11:00)
[2020-10-06] MEDS: ASPirin 81 mg TAB PO SCH (11:00)
[2020-10-06] MEDS: MULTIPLE VITAMIN TAB PO SCH (11:00)
[2020-10-06] MEDS: MORPHINE SULFATE INJECTION 2 MG/ML SYRG IV PRN ×2 (14:46→22:12)
[2020-10-06 15:00] VITALS: BP 134/69
[2020-10-06 17:29] VITALS: BP 117/61
[2020-10-06] MEDS: ATORVASTATIN 20 MG TAB PO SCH (21:00)
[2020-10-06 21:30] VITALS: BP 128/74
[2020-10-07 05:30] VITALS: BP 111/59
[2020-10-07] MEDS: ACCU-CHEK COMFORT CURVE STRIP VI SCH ×2 (05:34→11:30)
[2020-10-07] MEDS: VANCOMYCIN 1GM/250ML 250 ML IV SCH (05:34)
[2020-10-07] MEDS: InsuLIN REG 1unit/0.01ml Soln (100units/ml) SC SCH ×2 (05:42→11:30)
[2020-10-07 06:13] LABS: Hematocrit 33.9 % (41.0-53.0); Hemoglobin 11.5 g/dL (13.5-17.5); Mean Corpuscular Hemoglobin 29.3 pg (28.0-32.0); Mean Corpuscular Hgb Conc. 33.9 g/dL (32.0-36.0); Mean Corpuscular Volume 86.4 fL (80.0-100.0); Red Blood Cells 3.92 10^6/uL (4.5-5.90); Red Cell Distribution Width 13.9 % (11.8-14.3); White Blood Cell 8.7 10^3/uL (4.4-10.8)
[2020-10-07] MEDS: MEROPENEM 1GM IVPB 100 ML IV SCH (06:38)
[2020-10-07 06:43] LABS: Potassium 4.7 mmol/L (3.5-5.1)
[2020-10-07 06:44] LABS: Basophils % (manual) 0 (0.0-2.0); Blast Cells 0; Metamyelocytes % 0; Myelocytes % 0; Promyelocytes % 0; Reactive Lymphocytes 0
[2020-10-07 07:19] LABS: BUN/Creatinine Ratio 19.7; Calcium 8.5 mg/dL (8.5-10.1)
[2020-10-07 08:33] LABS: Band Neutrophils % (manual) 1; Eosinophils % (manual) 1 (0-7); Lymphocytes % (manual) 21 (10.0-50.0); Monocytes % (manual) 4 (0-12)
[2020-10-07 09:00] VITALS: BP 107/58
[2020-10-07] MEDS: ASPirin 81 mg TAB PO SCH (10:11)
[2020-10-07] MEDS: MULTIPLE VITAMIN TAB PO SCH (10:11)
[2020-10-07] MEDS: metFORMIN HYDROCHLORIDE 500 MG TAB PO SCH (10:11)
[2020-10-07] MEDS: SODIUM CHLOR 0.9% PF (SALINE LOCK) 10ML VIAL/SYR IV SCH (10:11)
== END 2020-10-07 13:45 | disposition home health service (06) | DRG 253 ==
LOC: EDBD 21:09 → ER 21:10 → TELE 09-30 13:18 → TELE-CENTR 10-01 11:29
PROVIDERS: ADMIT Internal Medicine; ATTEND Internal Medicine
PROC: 047R3ZZ Dilation of Right Posterior Tibial Artery, Percutaneous Approach (ICD-10-PCS; 2020-10-02)
PROC: 047T3ZZ Dilation of Right Peroneal Artery, Percutaneous Approach (ICD-10-PCS; 2020-10-02)
PROC: B41GYZZ Fluoroscopy of Left Lower Extremity Arteries using Other Contrast (ICD-10-PCS; 2020-10-02)
PROC: B41FYZZ Fluoroscopy of Right Lower Extremity Arteries using Other Contrast (ICD-10-PCS; 2020-10-02)
PROC: 0Y6T0Z0 Detachment at Right 3rd Toe, Complete, Open Approach (ICD-10-PCS; 2020-10-03)
PROC: 0QBN0ZZ Excision of Right Metatarsal, Open Approach (ICD-10-PCS; 2020-10-03)
PROC: 0QBL0ZZ Excision of Right Tarsal, Open Approach (ICD-10-PCS; 2020-10-03)
PROC: 0Y6R0Z0 Detachment at Right 2nd Toe, Complete, Open Approach (ICD-10-PCS; principal; 2020-10-03 11:58)
PROC: 02HV33Z Insertion of Infusion Device into Superior Vena Cava, Percutaneous Approach (ICD-10-PCS; 2020-10-04)
DX: E11.52 Type 2 diabetes mellitus with diabetic peripheral angiopathy with gangrene (principal); L03.115 Cellulitis of right lower limb; E87.1 Hypo-osmolality and hyponatremia; M86.8X7 Other osteomyelitis, ankle and foot; E11.69 Type 2 diabetes mellitus with other specified complication; E11.628 Type 2 diabetes mellitus with other skin complications; E78.5 Hyperlipidemia, unspecified; I10 Essential (primary) hypertension; Z20.822 Contact with and (suspected) exposure to COVID-19; I25.10 Atherosclerotic heart disease of native coronary artery without angina pectoris; L97.519 Non-pressure chronic ulcer of other part of right foot with unspecified severity; Z82.49 Family history of ischemic heart disease and other diseases of the circulatory system; Z88.0 Allergy status to penicillin; Z95.1 Presence of aortocoronary bypass graft; Z88.5 Allergy status to narcotic agent
CPT/HCPCS: 36415; 36569; 37228; 71045; 73620; 73718; 75716; 80048; 80053; 80202; 82565; 82962; 83605; 83880; 84484; 85007; 85025; 85027; 85610; 85652; 85730; 86141; 86850; 86900; 86901; 87040; 87070; 87075; 87077; 87186; 87205; 87426; 93005; 93306; 93926; 93970; 96365; 96366; 96367; 96372; 96375; 96376; 97116; 97163; 97530; 99152; 99153; G0378; J1815; J1956; J2185; J2250; J2405; J2704; J3490; Q9967

== ENCOUNTER 2020-11-11 19:41 | Inpatient (IN) | payer OTHER ==
[~2020-11-11] VITALS: Ht 182.9 cm; Wt 70.8 kg
[~2020-11-11 19:41] MED LIST changes: -CINN500C7 PO; +CLOP75TA28 PO; +HYDR-4902 PO; -MULT-930 PO; -SULF400T11 PO; +VANC1INJ IV
[2020-11-11] MEDS ORDERED: CLINDAMYCIN 600MG IV 50 ML IV ONE (20:15)
[2020-11-11 21:51] LABS: Basophils # (auto) 0 10 ^3/uL (0-0.2); Basophils % (auto) 0.9 % (0.0-2.0); Eosinophils # (auto) 0.2 10 ^3/uL (0-0.8); Hematocrit 38.2 % (41.0-53.0); Hemoglobin 12.4 g/dL (13.5-17.5); Lymphocytes # (auto) 1.5 10 ^3/uL (0.4-5.4); Lymphocytes % (auto) 36.3 % (10.0-50.0); Mean Corpuscular Hemoglobin 28.5 pg (28.0-32.0); Mean Corpuscular Hgb Conc. 32.6 g/dL (32.0-36.0); Mean Corpuscular Volume 87.7 fL (80.0-100.0); Monocytes # (auto) 0.3 10 ^3/uL (0-1.3); Monocytes % (auto) 7.3 % (0.0-12.0); Neutrophils # (auto) 2.2 10 ^3/uL (1.6-8.6); Neutrophils % (auto) 51.5 % (37.0-80.0); Nucleated Red Blood Cells % 0.1 %; Red Blood Cells 4.36 10^6/uL (4.5-5.90); White Blood Cell 4.3 10^3/uL (4.4-10.8)
[2020-11-11 22:11] LABS: INR 1.04 (0.9-1.15); Partial Thromboplastin Time 27.9 sec (23.6-33.0)
[2020-11-11 22:13] LABS: Albumin 3.3 g/dL (3.4-5.0); Calcium 9.4 mg/dL (8.5-10.1); Potassium 3.8 mmol/L (3.5-5.1)
[2020-11-11 22:16] LABS: BUN/Creatinine Ratio 16.8; Total Protein 7.9 g/dL (6.4-8.2)
[2020-11-12] MEDS ORDERED: ONDANSETRON HCL 4 MG/2 ML VIAL IV PRN ×2 (01:00→10:15)
[2020-11-12] MEDS ORDERED: DEXTROSE (50%) 50ML SYRG IV PRN (01:00)
[2020-11-12] MEDS ORDERED: MORPHINE SULFATE 4 MG/ML SYR/VIAL IV PRN ×2 (01:00→10:15)
[2020-11-12] MEDS: SODIUM CHLORIDE 0.9% 1,000 ML IV SCH ×2 (02:30→14:20)
[2020-11-12] MEDS: ACCU-CHEK COMFORT CURVE STRIP VI SCH ×4 (06:00→23:41)
[2020-11-12] MEDS: CLINDAMYCIN 600MG IV 50 ML IV SCH ×3 (06:20→21:06)
[2020-11-12] MEDS: InsuLIN REG 1unit/0.01ml Soln (100units/ml) SC SCH ×4 (06:20→23:42)
[2020-11-12] MEDS ORDERED: CLINDAMYCIN 600MG IV 50 ML IV ONE ×2 (08:54→09:05)
[2020-11-12] MEDS ORDERED: MIDAZOLAM HCL 2MG/2ML 2ml VIAL (1mg/ml) ONE (09:09)
[2020-11-12] MEDS ORDERED: fentaNYL CITRATE 100 MCG/2 ML VL ONE (09:09)
[2020-11-12] MEDS ORDERED: MEPERIDINE HCL (50 MG/ML) 1 ML VIAL ONE (09:10)
[2020-11-12] MEDS ORDERED: DexAMETHasone SOD PHOS 10MG/1ML VIAL INJ ONE (09:37)
[2020-11-12] MEDS ORDERED: PROPOFOL 10 MG/ML 20 ML IV ONE (09:37)
[2020-11-12] MEDS ORDERED: LABETALOL HCL 5 MG/ML 4ML SYRINGE IV PRN (10:15)
[2020-11-12] MEDS ORDERED: ePHEDrine SULFATE 50 MG/ML AMP IV PRN (10:15)
[2020-11-12] MEDS ORDERED: ACCU-CHEK COMFORT CURVE STRIP VI ONE (10:15)
[2020-11-12] MEDS ORDERED: MIDAZOLAM HCL 2MG/2ML 2ml VIAL (1mg/ml) IV PRN (10:15)
[2020-11-12] MEDS ORDERED: HYDROmorphone HCL 2 MG/ML VL IV PRN (10:15)
[2020-11-12] MEDS: PANTOPRAZOLE 40 MG/10 ML VIAL INJ IV SCH (10:53)
[2020-11-12] MEDS ORDERED: CLOP75TA28 PO (11:48)
[2020-11-12] MEDS ORDERED: ASPI-543 PO (11:48)
[2020-11-12 16:29] VITALS: BP 152/83
[2020-11-12 22:23] VITALS: BP 130/68
[2020-11-13] MEDS: SODIUM CHLORIDE 0.9% 1,000 ML IV SCH ×2 (03:40→17:00)
[2020-11-13] MEDS: CLINDAMYCIN 600MG IV 50 ML IV SCH ×2 (05:21→14:00)
[2020-11-13] MEDS: InsuLIN REG 1unit/0.01ml Soln (100units/ml) SC SCH ×3 (05:22→17:38)
[2020-11-13] MEDS: ACCU-CHEK COMFORT CURVE STRIP VI SCH ×4 (05:22→17:31)
[2020-11-13 05:28] VITALS: BP 122/72
[2020-11-13 06:35] LABS: Basophils # (auto) 0 10 ^3/uL (0-0.2); Basophils % (auto) 0.8 % (0.0-2.0); Eosinophils # (auto) 0.1 10 ^3/uL (0-0.8); Eosinophils % (auto) 2.7 % (0.0-7.0); Hematocrit 35.3 % (41.0-53.0); Hemoglobin 11.9 g/dL (13.5-17.5); Lymphocytes # (auto) 1.8 10 ^3/uL (0.4-5.4); Lymphocytes % (auto) 39.3 % (10.0-50.0); Mean Corpuscular Hemoglobin 29.5 pg (28.0-32.0); Mean Corpuscular Hgb Conc. 33.8 g/dL (32.0-36.0); Mean Corpuscular Volume 87.1 fL (80.0-100.0); Monocytes # (auto) 0.4 10 ^3/uL (0-1.3); Monocytes % (auto) 7.7 % (0.0-12.0); Neutrophils # (auto) 2.3 10 ^3/uL (1.6-8.6); Neutrophils % (auto) 49.5 % (37.0-80.0); Nucleated Red Blood Cells % 0.1 %; Red Blood Cells 4.05 10^6/uL (4.5-5.90); Red Cell Distribution Width 18.3 % (11.8-14.3); White Blood Cell 4.7 10^3/uL (4.4-10.8)
[2020-11-13 06:39] LABS: BUN/Creatinine Ratio 21.1; Potassium 3.9 mmol/L (3.5-5.1)
[2020-11-13 08:46] VITALS: BP 135/75
[2020-11-13] MEDS: PANTOPRAZOLE 40 MG/10 ML VIAL INJ IV SCH (09:42)
[2020-11-13] MEDS ORDERED: ASPirin 81 mg TAB PO SCH (10:00)
[2020-11-13] MEDS ORDERED: CLOPIDOGREL BISULFATE 75 MG TAB PO SCH (10:00)
[2020-11-13] MEDS ORDERED: CLOP75TA70 PO ×2 (12:57→12:59)
[2020-11-13] MEDS ORDERED: ASPI1TAB20 PO (12:58)
[2020-11-13] MEDS ORDERED: ASPI1TAB19 PO (12:59)
[2020-11-13 13:00] VITALS: BP 154/79
[2020-11-13 16:21] VITALS: BP 148/77
[2020-11-13 17:55] VITALS: BP 148/77
== END 2020-11-13 18:30 | disposition home health service (06) | DRG 464 ==
LOC: ER 19:43 → OVERFLOW 11-12 01:00 → WEST WING 11-12 15:37
PROVIDERS: ADMIT Nurse Practitioner; ATTEND Internal Medicine
PROC: 0HRMXK3 Replacement of Right Foot Skin with Nonautologous Tissue Substitute, Full Thickness, External Approach (ICD-10-PCS; 2020-11-12)
PROC: 0JBQ0ZZ Excision of Right Foot Subcutaneous Tissue and Fascia, Open Approach (ICD-10-PCS; principal; 2020-11-12 09:15)
DX: T87.89 Other complications of amputation stump (principal); L03.115 Cellulitis of right lower limb; N17.9 Acute kidney failure, unspecified; M86.9 Osteomyelitis, unspecified; E11.621 Type 2 diabetes mellitus with foot ulcer; I25.10 Atherosclerotic heart disease of native coronary artery without angina pectoris; E78.5 Hyperlipidemia, unspecified; L97.519 Non-pressure chronic ulcer of other part of right foot with unspecified severity; Z20.822 Contact with and (suspected) exposure to COVID-19; F17.210 Nicotine dependence, cigarettes, uncomplicated; F19.90 Other psychoactive substance use, unspecified, uncomplicated; Z82.49 Family history of ischemic heart disease and other diseases of the circulatory system; Z89.431 Acquired absence of right foot; Z95.1 Presence of aortocoronary bypass graft; Z72.89 Other problems related to lifestyle; Z88.0 Allergy status to penicillin; Z79.4 Long term (current) use of insulin; Y83.8 Other surgical procedures as the cause of abnormal reaction of the patient, or of later complication, without mention of misadventure at the time of the procedure; Y92.098 Other place in other non-institutional residence as the place of occurrence of the external cause; E11.69 Type 2 diabetes mellitus with other specified complication
CPT/HCPCS: 36415; 71045; 73700; 80048; 80053; 82962; 83605; 85025; 85610; 85652; 85730; 87070; 87075; 87205; 87426; 93005; 96365; 96375; C9113; G0378; J1100; J1815; J2250; J2704; J3490

== ENCOUNTER 2020-12-02 14:40 | Inpatient (IN) | payer OTHER ==
[~2020-12-02] VITALS: Ht 182.9 cm; Wt 67.8 kg
[~2020-12-02 14:40] MED LIST changes: -ASPI-543 PO; +ASPI1TAB19 PO; -CLOP75TA28 PO; +CLOP75TA70 PO
[2020-12-02 19:13] LABS: Basophils # (auto) 0 10 ^3/uL (0-0.2); Eosinophils # (auto) 0.1 10 ^3/uL (0-0.8); Eosinophils % (auto) 1.2 % (0.0-7.0); Monocytes # (auto) 0.6 10 ^3/uL (0-1.3); Neutrophils # (auto) 6.8 10 ^3/uL (1.6-8.6)
[2020-12-02 19:15] LABS: Basophils % (auto) 0.5 % (0.0-2.0); Hematocrit 31.7 % (41.0-53.0); Hemoglobin 10.7 g/dL (13.5-17.5); Lymphocytes # (auto) 1.5 10 ^3/uL (0.4-5.4); Lymphocytes % (auto) 16.7 % (10.0-50.0); Mean Corpuscular Hemoglobin 28.7 pg (28.0-32.0); Mean Corpuscular Hgb Conc. 33.7 g/dL (32.0-36.0); Mean Corpuscular Volume 85.2 fL (80.0-100.0); Monocytes % (auto) 7.1 % (0.0-12.0); Neutrophils % (auto) 74.5 % (37.0-80.0); Red Blood Cells 3.72 10^6/uL (4.5-5.90); White Blood Cell 9.2 10^3/uL (4.4-10.8)
[2020-12-02 19:29] LABS: Albumin 2.6 g/dL (3.4-5.0); Calcium 9.5 mg/dL (8.5-10.1); Potassium 4.4 mmol/L (3.5-5.1)
[2020-12-02 19:32] LABS: BUN/Creatinine Ratio 18.4
[2020-12-02 19:35] LABS: Bilirubin, Total 0.9 mg/dL (0.2-1.0); Total Protein 8.4 g/dL (6.4-8.2)
[2020-12-02] MEDS ORDERED: MORPHINE SULFATE 4 MG/ML SYR/VIAL IV PRN (21:15)
[2020-12-02] MEDS ORDERED: DEXTROSE (50%) 50ML SYRG IV PRN (21:15)
[2020-12-02] MEDS ORDERED: ONDANSETRON HCL 4 MG/2 ML VIAL IV PRN (21:15)
[2020-12-02] MEDS ORDERED: hydrALAZINE HCL 20 MG/ML VL IV PRN (21:15)
[2020-12-02] MEDS: SODIUM CHLORIDE 0.9% 1,000 ML IV SCH (22:01)
[2020-12-02] MEDS: CLINDAMYCIN 600MG IV 50 ML IV SCH (22:03)
[2020-12-02 22:49] LABS: INR 1.1 (0.9-1.15); Partial Thromboplastin Time 22.9 sec (23.6-33.0)
[2020-12-03] MEDS: InsuLIN REG 1unit/0.01ml Soln (100units/ml) SC SCH ×4 (00:43→18:26)
[2020-12-03] MEDS: ACCU-CHEK COMFORT CURVE STRIP VI SCH ×4 (00:43→18:21)
[2020-12-03] MEDS: CLINDAMYCIN 600MG IV 50 ML IV SCH ×2 (06:28→15:10)
[2020-12-03 07:09] LABS: BUN/Creatinine Ratio 20.5; Potassium 3.7 mmol/L (3.5-5.1)
[2020-12-03 07:19] LABS: Basophils # (auto) 0 10 ^3/uL (0-0.2); Basophils % (auto) 0.7 % (0.0-2.0); Eosinophils # (auto) 0.1 10 ^3/uL (0-0.8); Lymphocytes # (auto) 1.1 10 ^3/uL (0.4-5.4); Monocytes # (auto) 0.5 10 ^3/uL (0-1.3); Neutrophils # (auto) 3.9 10 ^3/uL (1.6-8.6)
[2020-12-03 07:23] LABS: Eosinophils % (auto) 2.6 % (0.0-7.0); Hematocrit 28.9 % (41.0-53.0); Hemoglobin 9.8 g/dL (13.5-17.5); Lymphocytes % (auto) 19.6 % (10.0-50.0); Mean Corpuscular Volume 85.3 fL (80.0-100.0); Neutrophils % (auto) 68.1 % (37.0-80.0); Red Blood Cells 3.39 10^6/uL (4.5-5.90); White Blood Cell 5.8 10^3/uL (4.4-10.8)
[2020-12-03] MEDS ORDERED: ceFAZolin 1GM/50ML 0 ML IV ONE (09:39)
[2020-12-03] MEDS ORDERED: CLINDAMYCIN 600MG IV 50 ML IV ONE ×2 (09:40→10:22)
[2020-12-03] MEDS ORDERED: fentaNYL CITRATE 100 MCG/2 ML VL ONE (09:50)
[2020-12-03] MEDS ORDERED: MIDAZOLAM HCL 2MG/2ML 2ml VIAL (1mg/ml) ONE (09:50)
[2020-12-03] MEDS ORDERED: MEPERIDINE HCL (50 MG/ML) 1 ML VIAL ONE (09:50)
[2020-12-03] MEDS ORDERED: PROPOFOL 10 MG/ML 20 ML IV ONE (09:53)
[2020-12-03] MEDS ORDERED: DexAMETHasone SOD PHOS 10MG/1ML VIAL INJ ONE (09:53)
[2020-12-03] MEDS ORDERED: PANTOPRAZOLE 40 MG/10 ML VIAL INJ IV SCH (10:00)
[2020-12-03] MEDS ORDERED: ceFAZolin 1GM VL ONE (10:06)
[2020-12-03] MEDS ORDERED: ONDANSETRON HCL 4 MG/2 ML VIAL IV PRN (10:15)
[2020-12-03] MEDS ORDERED: MORPHINE SULFATE 4 MG/ML SYR/VIAL IV PRN (10:15)
[2020-12-03] MEDS ORDERED: LABETALOL HCL 5 MG/ML 4ML SYRINGE IV PRN (10:15)
[2020-12-03] MEDS ORDERED: ePHEDrine SULFATE 50 MG/ML AMP IV PRN (10:15)
[2020-12-03] MEDS ORDERED: MIDAZOLAM HCL 2MG/2ML 2ml VIAL (1mg/ml) IV PRN (10:15)
[2020-12-03] MEDS ORDERED: hydrALAZINE HCL 20 MG/ML VL IV PRN (10:15)
[2020-12-03] MEDS ORDERED: ACCU-CHEK COMFORT CURVE STRIP VI ONE (10:15)
[2020-12-03] MEDS ORDERED: HYDROmorphone HCL 2 MG/ML VL IV PRN (10:15)
[2020-12-03] MEDS: SODIUM CHLORIDE 0.9% 1,000 ML IV SCH (10:35)
[2020-12-03 12:00] VITALS: BP 126/69
[2020-12-03 17:16] VITALS: BP 121/57
[2020-12-03 20:00] VITALS: BP 118/66
[2020-12-03 22:00] VITALS: BP 118/66
[2020-12-04] MEDS: ACCU-CHEK COMFORT CURVE STRIP VI SCH ×4 (00:14→18:00)
[2020-12-04] MEDS: InsuLIN REG 1unit/0.01ml Soln (100units/ml) SC SCH ×4 (00:34→18:00)
[2020-12-04 05:00] VITALS: BP 121/63
[2020-12-04 09:00] VITALS: BP 114/57
[2020-12-04] MEDS ORDERED: levoFLOXacin 500MG 100 ML IV SCH (10:00)
[2020-12-04 13:00] VITALS: BP 123/65
[2020-12-04 17:00] VITALS: BP 125/66
[2020-12-04 19:02] VITALS: BP 125/66
== END 2020-12-04 20:58 | disposition home health service (06) | DRG 629 ==
LOC: ER 14:40 → OVERFLOW 21:14 → WEST WING 12-03 08:59
PROVIDERS: ADMIT Nurse Practitioner; ATTEND Hospitalist
PROC: 05HC33Z Insertion of Infusion Device into Left Basilic Vein, Percutaneous Approach (ICD-10-PCS; 2020-12-03)
PROC: B54NZZA Ultrasonography of Left Upper Extremity Veins, Guidance (ICD-10-PCS; 2020-12-03)
PROC: 0QBQ0ZZ Excision of Right Toe Phalanx, Open Approach (ICD-10-PCS; principal; 2020-12-03 10:23)
DX: E11.621 Type 2 diabetes mellitus with foot ulcer (principal); L03.115 Cellulitis of right lower limb; E44.1 Mild protein-calorie malnutrition; E11.628 Type 2 diabetes mellitus with other skin complications; I25.10 Atherosclerotic heart disease of native coronary artery without angina pectoris; E78.5 Hyperlipidemia, unspecified; L97.519 Non-pressure chronic ulcer of other part of right foot with unspecified severity; Z20.822 Contact with and (suspected) exposure to COVID-19; Z80.1 Family history of malignant neoplasm of trachea, bronchus and lung; Z82.49 Family history of ischemic heart disease and other diseases of the circulatory system; Z91.19 Patient's noncompliance with other medical treatment and regimen; Z89.421 Acquired absence of other right toe(s); Z88.0 Allergy status to penicillin; Z95.1 Presence of aortocoronary bypass graft
CPT/HCPCS: 36415; 71045; 73630; 80048; 80053; 82962; 85025; 85610; 85730; 87070; 87075; 87077; 87186; 87205; 87426; 93005; G0378; J0690; J1100; J1815; J1956; J2250; J2704; J3490

== ENCOUNTER 2021-03-16 17:27 | Inpatient (IN) | payer OTHER ==
[~2021-03-16] VITALS: Ht 167.6 cm; Wt 56.7 kg
[~2021-03-16 17:27] MED LIST changes: -VANC1INJ IV
[2021-03-16] MEDS ORDERED: DexAMETHasone SOD PHOS 10MG/1ML VIAL INJ IV ONE (19:15)
[2021-03-16 21:07] LABS: Basophils # (auto) 0 10 ^3/uL (0-0.2); Basophils % (auto) 0.2 % (0.0-2.0); Eosinophils # (auto) 0 10 ^3/uL (0-0.8); Hematocrit 30.1 % (41.0-53.0); Hemoglobin 9.8 g/dL (13.5-17.5); Lymphocytes # (auto) 0.7 10 ^3/uL (0.4-5.4); Lymphocytes % (auto) 4.7 % (10.0-50.0); Mean Corpuscular Hemoglobin 27.2 pg (28.0-32.0); Mean Corpuscular Hgb Conc. 32.4 g/dL (32.0-36.0); Mean Corpuscular Volume 83.8 fL (80.0-100.0); Monocytes # (auto) 0.7 10 ^3/uL (0-1.3); Monocytes % (auto) 4.5 % (0.0-12.0); Neutrophils % (auto) 90.6 % (37.0-80.0); Red Cell Distribution Width 15.2 % (11.8-14.3); White Blood Cell 15.5 10^3/uL (4.4-10.8)
[2021-03-16 21:18] LABS: Albumin 2.8 g/dL (3.4-5.0); Calcium 8.8 mg/dL (8.5-10.1)
[2021-03-16 21:24] LABS: BUN/Creatinine Ratio 30.1; Bilirubin, Total 0.5 mg/dL (0.2-1.0); Total Protein 7.3 g/dL (6.4-8.2)
[2021-03-16] MEDS ORDERED: VANCOMYCIN 1GM/250ML 250 ML IV ONE (21:45)
[2021-03-16] MEDS ORDERED: ASPirin 325 MG TAB PO ONE (21:45)
[2021-03-16] MEDS ORDERED: CLOPIDOGREL BISULFATE 75 MG TAB PO ONE (21:45)
[2021-03-16] MEDS ORDERED: HEPARIN SODIUM (PORCINE) 5000 UNITS/ML 1ML VIAL IV ONE (21:45)
[2021-03-16] MEDS ORDERED: CEFEPIME 1 GM in SODIUM CHL 0.9% 50 ML IV ONE (21:45)
[2021-03-16] MEDS ORDERED: IOHEXOL 350 MG/ML 100ML IJ ONE (22:28)
[2021-03-16] MEDS ORDERED: ACETAMINOPHEN 325 MG TAB PO PRN (22:30)
[2021-03-16] MEDS ORDERED: NITROGLYCERIN 0.4 MG SL TAB SL PRN (22:30)
[2021-03-16] MEDS ORDERED: MORPHINE SULFATE INJECTION 2 MG/ML SYRG IV PRN (22:30)
[2021-03-16] MEDS ORDERED: HYDROcodone-ACET 5/325MG TAB PO PRN (22:30)
[2021-03-16] MEDS ORDERED: ONDANSETRON HCL 4 MG/2 ML VIAL IV PRN (22:30)
[2021-03-16] MEDS ORDERED: DEXTROSE (50%) 50ML SYRG IV PRN (22:30)
[2021-03-16] MEDS ORDERED: HEPARIN DRIP/D5W 100UNITS/ML 250 ML IV SCH (22:30)
[2021-03-17] MEDS ORDERED: InsuLIN REG 1unit/0.01ml Soln (100units/ml) SC ONE (01:00)
[2021-03-17 02:08] VITALS: BP 113/64
[2021-03-17] MEDS ORDERED: CLINDAMYCIN 600MG IV 50 ML IV SCH (06:00)
[2021-03-17] MEDS ORDERED: InsuLIN REG 1unit/0.01ml Soln (100units/ml) SC SCH (07:00)
[2021-03-17] MEDS ORDERED: ACCU-CHEK COMFORT CURVE STRIP VI SCH (07:00)
[2021-03-17] MEDS ORDERED: levoFLOXacin 500MG 100 ML IV SCH (10:00)
[2021-03-17] MEDS ORDERED: ASPirin 81 mg TAB PO SCH (10:00)
[2021-03-17] MEDS ORDERED: ATORVASTATIN 20 MG TAB PO SCH (22:00)
== END 2021-03-17 02:25 | disposition short-term general hospital (02) | DRG 282 ==
LOC: EDBD 17:27 → ER 17:33 → TELE 22:19
PROVIDERS: ADMIT Nurse Practitioner; ATTEND Nurse Practitioner
DX: I21.4 Non-ST elevation (NSTEMI) myocardial infarction (principal); R09.02 Hypoxemia; E11.628 Type 2 diabetes mellitus with other skin complications; E78.5 Hyperlipidemia, unspecified; I10 Essential (primary) hypertension; I25.10 Atherosclerotic heart disease of native coronary artery without angina pectoris; Z95.1 Presence of aortocoronary bypass graft; Z88.0 Allergy status to penicillin; Z80.1 Family history of malignant neoplasm of trachea, bronchus and lung
CPT/HCPCS: 36415; 36600; 71045; 71275; 73630; 73700; 80053; 81001; 82010; 82728; 82805; 82962; 83605; 83735; 83880; 84484; 85025; 85379; 85652; 85730; 86141; 87040; 93005; 96365; 96367; 96372; 96375; 99291; G0378; J1100; J1815

== ENCOUNTER → 2021-08-25 | Emergency (ER) | payer OTHER ==
[~2021-08-25] VITALS: Ht 182.9 cm; Wt 84.0 kg
[2021-08-25 15:51] VITALS: BP 125/43
[2021-08-25 17:38] LABS: Urine Bacteria NONE SEEN /hpf (None Seen); Urine Blood 3+ /uL (Negative); Urine Budding Yeast MODERATE /hpf (None Seen); Urine Specific Gravity 1.019 (1.001-1.035); Urine WBC 2803 /hpf (0 - 3); Urine WBC Clumps PRESENT /hpf (None Seen)
== END | disposition home or self-care (01) ==
LOC: ER 15:25
DX: T83.091A Other mechanical complication of indwelling urethral catheter, initial encounter (principal); I25.10 Atherosclerotic heart disease of native coronary artery without angina pectoris; E11.9 Type 2 diabetes mellitus without complications; E78.5 Hyperlipidemia, unspecified; Z95.1 Presence of aortocoronary bypass graft; Z79.82 Long term (current) use of aspirin; Z79.01 Long term (current) use of anticoagulants; Z79.899 Other long term (current) drug therapy; Z88.0 Allergy status to penicillin
CPT/HCPCS: 76705; 81001

== ENCOUNTER 2023-04-29 07:22 | Inpatient (IN) | payer OTHER ==
[~2023-04-29] VITALS: Ht 182.9 cm; Wt 65.9 kg
[~2023-04-29 07:22] MED LIST changes: +ASPI-498 OR; +GLIM4TAB42 PO; +METF-372 PO
[2023-04-29 07:33] VITALS: PULSE 91; RESP 18; O2SAT 98
[2023-04-29 08:13] LABS: Basophils # (auto) 0 10 ^3/uL (0-0.2); Basophils % (auto) 0.5 % (0.0-2.0); Eosinophils # (auto) 0.3 10 ^3/uL (0-0.8); Hematocrit 34.4 % (41.0-53.0); Hemoglobin 11.1 g/dL (13.5-17.5); Lymphocytes # (auto) 1.5 10 ^3/uL (0.4-5.4); Lymphocytes % (auto) 20.4 % (10.0-50.0); Mean Corpuscular Hemoglobin 29.1 pg (28.0-32.0); Mean Corpuscular Hgb Conc. 32.4 g/dL (32.0-36.0); Mean Corpuscular Volume 89.8 fL (80.0-100.0); Monocytes # (auto) 0.4 10 ^3/uL (0-1.3); Monocytes % (auto) 5.8 % (0.0-12.0); Neutrophils % (auto) 69.3 % (37.0-80.0); Nucleated Red Blood Cells % 0.1 %; Red Blood Cells 3.83 10^6/uL (4.5-5.90); Red Cell Distribution Width 16.3 % (11.8-14.3); White Blood Cell 7.2 10^3/uL (4.4-10.8)
[2023-04-29 08:14] LABS: Alanine Aminotransferase 34 U/L (7-40); Albumin 4.4 g/dL (3.2-4.8); Alkaline Phosphatase 95 U/L (46-116); Anion Gap 8 (5-15); Aspartate Aminotransferase 34 U/L (13-40); BUN/Creatinine Ratio 18.7 (10.0-20.0); Blood Urea Nitrogen 28 mg/dL (9-23); Calcium 9.8 mg/dL (8.5-10.1); Carbon Dioxide 23 mmol/L (20-30); Chloride 108 mmol/L (98-107); Glucose 158 mg/dL (74-106); Potassium 4.7 mmol/L (3.5-5.1); Sodium 139 mmol/L (136-145); Total Protein 7.6 g/dL (5.7-8.2)
[2023-04-29 08:20] LABS: INR 1.11 (0.9-1.15); Prothrombin Time 11.6 sec (9.3-11.8)
[2023-04-29] MEDS: HYDROcodone-ACET 10/325MG TAB PO ONE (10:06)
[2023-04-29] MEDS ORDERED: MORPHINE SULFATE INJ 2 MG/ml SYRG IV PRN (11:15)
[2023-04-29] MEDS ORDERED: ACETAMINOPHEN 325 MG TAB PO PRN (11:15)
[2023-04-29] MEDS ORDERED: DEXTROSE (50%) 50ML SYRG IV PRN (11:15)
[2023-04-29] MEDS ORDERED: NITROGLYCERIN 0.4 MG SL TAB SL PRN (11:15)
[2023-04-29] MEDS: SODIUM CHLORIDE 0.9% 1,000 ML IV SCH (11:40)
[2023-04-29 11:52] LABS: LDL Cholesterol 128 mg/dL (< 100); Triglycerides 68 mg/dL (< 150)
[2023-04-29 11:54] LABS: Cholesterol 176 mg/dL (< 200); HDL Cholesterol 42 mg/dL (40-59)
[2023-04-29] MEDS: InsuLIN REG 1unit/0.01ml Soln (100units/ml) SC SCH (11:56)
[2023-04-29] MEDS: KETOROLAC TROMETH 30 MG/ML 1ML VIAL IV ONE (11:57)
[2023-04-29] MEDS: ACCU-CHEK COMFORT CURVE STRIP VI SCH (11:57)
[2023-04-29 13:00] VITALS: BP 128/77; PULSE 72; RESP 14; TEMP 97.5; O2SAT 97
[2023-04-29 13:27] VITALS: PULSE 72; RESP 14; O2SAT 97
[2023-04-29 17:00] VITALS: BP 128/70; PULSE 74; RESP 16; TEMP 97.5; O2SAT 97
[2023-04-29] MEDS: FUROSEMIDE 20 MG/2 ML VIAL IV ONE (17:05)
[2023-04-29] MEDS: HYDROcodone-ACET 5/325MG TAB PO PRN (17:10)
[2023-04-29] MEDS: FUROSEMIDE 20 MG/2 ML VIAL IV SCH (18:05)
[2023-04-29 20:00] VITALS: BP 135/82; PULSE 74; PULSE 79; RESP 18; RESP 19; TEMP 97.8; O2SAT 96
[2023-04-29 21:00] VITALS: BP 121/67; PULSE 67; RESP 18; TEMP 98; O2SAT 95
[2023-04-29] MEDS: METOPROLOL TARTRATE 25 MG TAB PO SCH (23:23)
[2023-04-30] VITALS (8 sets, daily range): BP systolic 127–138; BP diastolic 71–84; PULSE 68–81; RESP 16–20; TEMP 97.4–98; O2SAT 94–97
[2023-04-30] MEDS: HYDROcodone-ACET 10/325MG TAB PO ONE (01:00)
[2023-04-30] MEDS: HYDROcodone-ACET 10/325MG TAB ONE (01:12)
[2023-04-30] MEDS: ZOLPIDEM TARTRATE 5 MG TAB PO PRN (02:21)
[2023-04-30 05:38] LABS: Basophils # (auto) 0 10 ^3/uL (0-0.2); Basophils % (auto) 0.4 % (0.0-2.0); Eosinophils # (auto) 0.1 10 ^3/uL (0-0.8); Eosinophils % (auto) 1.8 % (0.0-7.0); Hematocrit 32.9 % (41.0-53.0); Hemoglobin 10.5 g/dL (13.5-17.5); Lymphocytes # (auto) 1.1 10 ^3/uL (0.4-5.4); Lymphocytes % (auto) 16.5 % (10.0-50.0); Mean Corpuscular Hemoglobin 28.6 pg (28.0-32.0); Mean Corpuscular Hgb Conc. 31.9 g/dL (32.0-36.0); Mean Corpuscular Volume 89.6 fL (80.0-100.0); Monocytes # (auto) 0.4 10 ^3/uL (0-1.3); Neutrophils # (auto) 4.8 10 ^3/uL (1.6-8.6); Neutrophils % (auto) 75.3 % (37.0-80.0); Nucleated Red Blood Cells % 0.1 %; Red Blood Cells 3.68 10^6/uL (4.5-5.90); Red Cell Distribution Width 16.9 % (11.8-14.3); White Blood Cell 6.4 10^3/uL (4.4-10.8)
[2023-04-30 05:52] LABS: Alanine Aminotransferase 29 U/L (7-40); Albumin 4.2 g/dL (3.2-4.8); Alkaline Phosphatase 84 U/L (46-116); Anion Gap 5 (5-15); BUN/Creatinine Ratio 17.7 (10.0-20.0); Bilirubin, Total 0.9 mg/dL (0.2-1.0); Blood Urea Nitrogen 29 mg/dL (9-23); Calcium 9.5 mg/dL (8.7-10.4); Carbon Dioxide 25 mmol/L (20-30); Chloride 109 mmol/L (98-107); Glucose 165 mg/dL (74-106); Potassium 4.4 mmol/L (3.5-5.1); Sodium 139 mmol/L (136-145)
[2023-04-30 06:10] LABS: Aspartate Aminotransferase 23 U/L (13-40)
[2023-04-30] MEDS ORDERED: ATORVASTATIN 20 MG TAB PO SCH (10:00)
[2023-04-30] MEDS: ATORVASTATIN 20 MG TAB PO SCH (10:18)
[2023-04-30] MEDS: CLOPIDOGREL BISULFATE 75 MG TAB PO SCH (10:18)
[2023-04-30] MEDS: ASPirin-EC 81 mg tab PO SCH (10:18)
[2023-04-30] MEDS: ENOXAPARIN SOD 40 MG/0.4 ML SYRINGE SC SCH (10:20)
[2023-04-30] MEDS: HYDROmorphone HCL 2 MG/ML VL/or syr IV PRN (13:47)
[2023-04-30] MEDS: ONDANSETRON HCL 4 MG/2 ML VIAL IV PRN (16:19)
[2023-04-30] MEDS: ONDANSETRON HCL 4 MG/2 ML VIAL ONE (16:19)
[2023-04-30 21:38] LABS: Urine WBC None Seen /hpf (0 - 3)
[2023-04-30 21:47] LABS: Urine Bacteria NONE SEEN /hpf (None Seen); Urine Blood Negative /uL (Negative); Urine Clarity Clear (Clear); Urine Color Colorless (Yellow); Urine Protein, UAD Negative (Negative); Urine Specific Gravity 1.009 (1.001-1.035); Urine Urobilinogen Normal (Negative)
[2023-04-30] MEDS ORDERED: SACUBITRIL-VALSARTAN 24mg/26mg TAB PO SCH (22:00)
[2023-05-01 01:00] VITALS: BP 124/67; PULSE 75; RESP 18; TEMP 98; O2SAT 97
[2023-05-01] MEDS: KETOROLAC TROMETH 30 MG/ML 1ML VIAL IV PRN (01:29)
[2023-05-01 05:00] VITALS: BP 133/75; PULSE 78; RESP 19; TEMP 98.1; O2SAT 96
[2023-05-01 08:00] VITALS: BP 130/77; PULSE 84; PULSE 86; RESP 20; TEMP 98.6; O2SAT 96
[2023-05-01 08:47] LABS: Basophils # (auto) 0 10 ^3/uL (0-0.2); Basophils % (auto) 0.3 % (0.0-2.0); Eosinophils # (auto) 0.1 10 ^3/uL (0-0.8); Eosinophils % (auto) 0.9 % (0.0-7.0); Hematocrit 33.3 % (41.0-53.0); Hemoglobin 10.7 g/dL (13.5-17.5); Lymphocytes # (auto) 1.1 10 ^3/uL (0.4-5.4); Lymphocytes % (auto) 15.3 % (10.0-50.0); Mean Corpuscular Hgb Conc. 32.1 g/dL (32.0-36.0); Mean Corpuscular Volume 90.3 fL (80.0-100.0); Monocytes # (auto) 0.4 10 ^3/uL (0-1.3); Monocytes % (auto) 5.7 % (0.0-12.0); Neutrophils # (auto) 5.4 10 ^3/uL (1.6-8.6); Neutrophils % (auto) 77.8 % (37.0-80.0); Nucleated Red Blood Cells % 0.1 %; Red Blood Cells 3.69 10^6/uL (4.5-5.90); Red Cell Distribution Width 16.6 % (11.8-14.3); White Blood Cell 6.9 10^3/uL (4.4-10.8)
[2023-05-01 08:59] LABS: Alanine Aminotransferase 26 U/L (7-40); Albumin 4.3 g/dL (3.2-4.8); Alkaline Phosphatase 85 U/L (46-116); Anion Gap 7 (5-15); Aspartate Aminotransferase 26 U/L (13-40); BUN/Creatinine Ratio 18.4 (10.0-20.0); Blood Urea Nitrogen 27 mg/dL (9-23); Calcium 9.2 mg/dL (8.5-10.1); Carbon Dioxide 26 mmol/L (20-30); Chloride 108 mmol/L (98-107); Glucose 147 mg/dL (74-106); Potassium 4.9 mmol/L (3.5-5.1); Sodium 141 mmol/L (136-145)
[2023-05-01 09:00] LABS: Bilirubin, Total 0.9 mg/dL (0.2-1.0); Total Protein 7.3 g/dL (5.7-8.2)
[2023-05-01] MEDS: EMPAGLIFLOZIN 10 MG TAB PO SCH (09:45)
[2023-05-01 12:20] LABS: Magnesium 1.9 mg/dL (1.6-2.6)
[2023-05-01 12:21] LABS: Phosphorus 2.8 mg/dL (2.4-5.1)
[2023-05-01] MEDS: HYDROcodone-ACET 5/325MG TAB PO PRN (12:25)
[2023-05-01 13:33] VITALS: BP 151/90; PULSE 86; RESP 18; TEMP 97.8; O2SAT 100
[2023-05-01 19:59] LABS: Creatinine, Urine 40.31 mg/dL (30.0-125.0)
[2023-05-01 20:00] VITALS: PULSE 70
[2023-05-01 21:00] VITALS: BP 141/85; PULSE 79; RESP 17; TEMP 97.5; O2SAT 96
[2023-05-02] VITALS (12 sets, daily range): BP systolic 117–164; BP diastolic 62–100; PULSE 74–87; RESP 12–20; TEMP 36.6; O2SAT 94–99
[2023-05-02 06:25] LABS: Basophils # (auto) 0 10 ^3/uL (0-0.2); Basophils % (auto) 0.5 % (0.0-2.0); Eosinophils # (auto) 0.1 10 ^3/uL (0-0.8); Eosinophils % (auto) 1.7 % (0.0-7.0); Hematocrit 33.7 % (41.0-53.0); Hemoglobin 10.9 g/dL (13.5-17.5); Lymphocytes # (auto) 2.1 10 ^3/uL (0.4-5.4); Lymphocytes % (auto) 25.7 % (10.0-50.0); Mean Corpuscular Hemoglobin 29.1 pg (28.0-32.0); Mean Corpuscular Hgb Conc. 32.2 g/dL (32.0-36.0); Mean Corpuscular Volume 90.4 fL (80.0-100.0); Monocytes # (auto) 0.5 10 ^3/uL (0-1.3); Monocytes % (auto) 6.1 % (0.0-12.0); Neutrophils # (auto) 5.4 10 ^3/uL (1.6-8.6); Red Blood Cells 3.73 10^6/uL (4.5-5.90); Red Cell Distribution Width 16.8 % (11.8-14.3); White Blood Cell 8.1 10^3/uL (4.4-10.8)
[2023-05-02 06:40] LABS: Alanine Aminotransferase 27 U/L (7-40); Alkaline Phosphatase 83 U/L (46-116); Anion Gap 5 (5-15); Aspartate Aminotransferase 26 U/L (13-40); BUN/Creatinine Ratio 16.2 (10.0-20.0); Bilirubin, Total 1.1 mg/dL (0.2-1.0); Blood Urea Nitrogen 24 mg/dL (9-23); Calcium 8.9 mg/dL (8.7-10.4); Carbon Dioxide 24 mmol/L (20-30); Chloride 110 mmol/L (98-107); Glucose 109 mg/dL (74-106); Potassium 4.1 mmol/L (3.5-5.1); Sodium 139 mmol/L (136-145); Total Protein 6.9 g/dL (5.7-8.2)
[2023-05-02 11:06] LABS: INR 1.15 (0.9-1.15); Partial Thromboplastin Time 30.5 SEC (24.5-34.5)
[2023-05-02] MEDS: LIDOCAINE 2%HCL (LOCAL ANESTH.) INJ 20ML MDV ONE (12:16)
[2023-05-02] MEDS: IODIXANOL 320MG/ML 100ML BTL IV ONE ×2 (12:17→14:36)
[2023-05-02] MEDS: ANGIOMAX 250 MG VIAL IV ONE (13:28)
[2023-05-02] MEDS: fentaNYL CITRATE 100 MCG/2 ML VL ONE (13:28)
[2023-05-02] MEDS: MIDAZOLAM HCL 2MG/2ML 2ml VIAL (1mg/ml) ONE (13:29)
[2023-05-02] MEDS: SODIUM CHL 0.9% 0 ML ONE (13:29)
[2023-05-02] MEDS: hydrALAZINE HCL 20 MG/ML VL ONE (14:37)
[2023-05-02] MEDS: SODIUM CHLORIDE 0.9% 500 ML IV ONE (15:35)
[2023-05-02] MEDS: FUROSEMIDE 40 MG/4 ML VIAL IV ONE (15:35)
[2023-05-03] VITALS (7 sets, daily range): BP systolic 108–149; BP diastolic 57–76; PULSE 59–97; RESP 15–20; TEMP 96.1–98.3; O2SAT 96–98
[2023-05-03 06:17] LABS: Basophils # (auto) 0 10 ^3/uL (0-0.2); Basophils % (auto) 0.7 % (0.0-2.0); Eosinophils # (auto) 0.1 10 ^3/uL (0-0.8); Eosinophils % (auto) 2.1 % (0.0-7.0); Hematocrit 33.3 % (41.0-53.0); Hemoglobin 11.2 g/dL (13.5-17.5); Lymphocytes # (auto) 1.4 10 ^3/uL (0.4-5.4); Lymphocytes % (auto) 20.5 % (10.0-50.0); Mean Corpuscular Hemoglobin 29.9 pg (28.0-32.0); Mean Corpuscular Hgb Conc. 33.5 g/dL (32.0-36.0); Mean Corpuscular Volume 89.3 fL (80.0-100.0); Monocytes # (auto) 0.6 10 ^3/uL (0-1.3); Neutrophils # (auto) 4.7 10 ^3/uL (1.6-8.6); Neutrophils % (auto) 67.7 % (37.0-80.0); Red Blood Cells 3.73 10^6/uL (4.5-5.90); Red Cell Distribution Width 16.2 % (11.8-14.3); White Blood Cell 6.9 10^3/uL (4.4-10.8)
[2023-05-03 06:34] LABS: Alanine Aminotransferase 26 U/L (7-40); Alkaline Phosphatase 87 U/L (46-116); Anion Gap 8 (5-15); Aspartate Aminotransferase 22 U/L (13-40); BUN/Creatinine Ratio 21.9 (10.0-20.0); Bilirubin, Total 1.4 mg/dL (0.2-1.0); Blood Urea Nitrogen 32 mg/dL (9-23); Calcium 8.9 mg/dL (8.7-10.4); Carbon Dioxide 26 mmol/L (20-30); Chloride 107 mmol/L (98-107); Glucose 95 mg/dL (74-106); Potassium 3.7 mmol/L (3.5-5.1); Sodium 141 mmol/L (136-145); Total Protein 6.9 g/dL (5.7-8.2)
[2023-05-03] MEDS: SODIUM CHLORIDE 0.9% 1,000 ML IV SCH (15:40)
[2023-05-03 16:27] LABS: Chloride 103 mmol/L (98-107); Sodium 137 mmol/L (136-145)
[2023-05-03 16:28] LABS: Anion Gap 6 (5-15); Calcium 9.3 mg/dL (8.7-10.4); Carbon Dioxide 28 mmol/L (20-30)
[2023-05-03 16:36] LABS: Glucose 260 mg/dL (74-106)
[2023-05-03 16:40] LABS: BUN/Creatinine Ratio 20.6 (10.0-20.0); Blood Urea Nitrogen 34 mg/dL (9-23)
[2023-05-04] VITALS (8 sets, daily range): BP systolic 105–146; BP diastolic 52–87; PULSE 67–85; RESP 14–18; TEMP 97.8–98.2; O2SAT 96–98
[2023-05-04 06:23] LABS: Alanine Aminotransferase 26 U/L (7-40); Alkaline Phosphatase 86 U/L (46-116); Anion Gap 9 (5-15); Aspartate Aminotransferase 28 U/L (13-40); Bilirubin, Total 0.9 mg/dL (0.2-1.0); Blood Urea Nitrogen 36 mg/dL (9-23); Calcium 9.2 mg/dL (8.5-10.1); Carbon Dioxide 26 mmol/L (20-30); Chloride 106 mmol/L (98-107); Potassium 3.6 mmol/L (3.5-5.1); Sodium 141 mmol/L (136-145); Total Protein 6.4 g/dL (5.7-8.2)
[2023-05-04 06:26] LABS: Glucose 117 mg/dL (74-106)
[2023-05-04] MEDS ORDERED: SODIUM CHLORIDE 0.9% 1,000 ML IV SCH (11:15)
[2023-05-04] MEDS: SACUBITRIL-VALSARTAN 24mg/26mg TAB PO SCH (22:22)
[2023-05-05 01:00] VITALS: BP 121/64; PULSE 72; RESP 14; TEMP 98; O2SAT 98
[2023-05-05 05:00] VITALS: BP 122/63; PULSE 82; RESP 14; TEMP 98.1; O2SAT 98
[2023-05-05 06:51] LABS: Alanine Aminotransferase 27 U/L (7-40); Albumin 4.1 g/dL (3.2-4.8); Alkaline Phosphatase 84 U/L (46-116); Anion Gap 8 (5-15); Aspartate Aminotransferase 25 U/L (13-40); BUN/Creatinine Ratio 22.1 (10.0-20.0); Blood Urea Nitrogen 32 mg/dL (9-23); Carbon Dioxide 26 mmol/L (20-30); Chloride 105 mmol/L (98-107); Glucose 149 mg/dL (74-106); Potassium 3.7 mmol/L (3.5-5.1); Sodium 139 mmol/L (136-145)
[2023-05-05 06:52] LABS: Bilirubin, Total 0.9 mg/dL (0.2-1.0); Total Protein 6.4 g/dL (5.7-8.2)
[2023-05-05 07:30] VITALS: PULSE 94
[2023-05-05 09:00] VITALS: BP 99/58; PULSE 83; RESP 18; TEMP 97.8; O2SAT 96
[2023-05-05] MEDS ORDERED: FURO1TAB33 PO (11:20)
[2023-05-05] MEDS ORDERED: EMPA1TAB PO (11:20)
[2023-05-05] MEDS ORDERED: METO25TA5 PO (11:20)
[2023-05-05] MEDS ORDERED: SACU1TAB PO (11:20)
[2023-05-05 13:12] VITALS: BP 108/61; PULSE 80; RESP 17; TEMP 97.7; O2SAT 100
== END 2023-05-05 15:35 | disposition home or self-care (01) | DRG 286 ==
LOC: ER 07:22 → EDBD 07:22 → TELE 11:05 → EAST 13:02 → TELE-EAST 13:05
PROVIDERS: ADMIT Nurse Practitioner Family; ATTEND Family Medicine
PROC: 4A023N7 Measurement of Cardiac Sampling and Pressure, Left Heart, Percutaneous Approach (ICD-10-PCS; principal; 2023-05-02)
PROC: B211YZZ Fluoroscopy of Multiple Coronary Arteries using Other Contrast (ICD-10-PCS; 2023-05-02)
PROC: B21FYZZ Fluoroscopy of Other Bypass Graft using Other Contrast (ICD-10-PCS; 2023-05-02)
PROC: B218YZZ Fluoroscopy of Left Internal Mammary Bypass Graft using Other Contrast (ICD-10-PCS; 2023-05-02)
PROC: B44LZZZ Ultrasonography of Femoral Artery (ICD-10-PCS; 2023-05-02)
PROC: B41FYZZ Fluoroscopy of Right Lower Extremity Arteries using Other Contrast (ICD-10-PCS; 2023-05-02)
DX: I13.0 Hypertensive heart and chronic kidney disease with heart failure and stage 1 through stage 4 chronic kidney disease, or unspecified chronic kidney disease (principal); I50.23 Acute on chronic systolic (congestive) heart failure; N17.0 Acute kidney failure with tubular necrosis; I42.9 Cardiomyopathy, unspecified; I25.10 Atherosclerotic heart disease of native coronary artery without angina pectoris; E11.65 Type 2 diabetes mellitus with hyperglycemia; E11.22 Type 2 diabetes mellitus with diabetic chronic kidney disease; G47.00 Insomnia, unspecified; N18.30 Chronic kidney disease, stage 3 unspecified; D63.1 Anemia in chronic kidney disease; I49.3 Ventricular premature depolarization; M47.9 Spondylosis, unspecified; G89.29 Other chronic pain; M54.9 Dorsalgia, unspecified; E78.00 Pure hypercholesterolemia, unspecified; I27.20 Pulmonary hypertension, unspecified; Z88.0 Allergy status to penicillin; Z88.8 Allergy status to other drugs, medicaments and biological substances; Z79.899 Other long term (current) drug therapy; Z79.82 Long term (current) use of aspirin; Z95.1 Presence of aortocoronary bypass graft; Z82.49 Family history of ischemic heart disease and other diseases of the circulatory system; Z88.1 Allergy status to other antibiotic agents; Z83.3 Family history of diabetes mellitus; Z80.1 Family history of malignant neoplasm of trachea, bronchus and lung; Z98.62 Peripheral vascular angioplasty status; Z79.84 Long term (current) use of oral hypoglycemic drugs; Z89.431 Acquired absence of right foot
CPT/HCPCS: 36415; 71045; 72128; 72131; 74176; 75710; 76775; 80048; 80053; 80061; 81001; 82043; 82306; 82570; 82962; 83036; 83605; 83735; 83880; 83970; 84100; 84300; 84443; 84484; 85025; 85610; 85730; 93005; 93306; 93461; 93925; 96374; 99152; 99291; G0378; J1815; J1885; J2250; J2405; Q9967